=== PATIENT | male | born 1935 | race Two or more races ===

== ENCOUNTER 2019-12-31 05:25 | Day surgery (SDC) | payer OTHER ==
[~2019-12-31 05:25] MED LIST: ASA81 MG; ATACAND32 MG PO; CIPRO100 MG; LEVALBUTEROL; LEVAQUIN500 MG PO; NORVASC5 MG; TAMS0.4C; TAMS0.4C PO; TOPROL XL25 M1; TRELEGY ELLIPT1 EACH IH
== END 2019-12-31 15:35 | disposition home or self-care (01) ==
LOC: CIR.AMB 05:25
PROVIDERS: ATTEND Urology
DX: C67.8 Malignant neoplasm of overlapping sites of bladder (principal); Z20.828 Contact with and (suspected) exposure to other viral communicable diseases; N40.0 Benign prostatic hyperplasia without lower urinary tract symptoms

== ENCOUNTER 2020-01-12 03:22 | Emergency (ER) | payer OTHER ==
[~2020-01-12] VITALS: Ht 170.2 cm; Wt 81.6 kg
== END 2020-01-12 05:05 | disposition home or self-care (01) ==
LOC: ER 03:22
DX: T83.091A Other mechanical complication of indwelling urethral catheter, initial encounter (principal)

== ENCOUNTER 2020-02-28 05:55 | Day surgery (SDC) | payer OTHER | END 2020-02-28 11:40 | disposition home or self-care (01) | LOC: CIR.AMB 05:55 | PROVIDERS: ATTEND Urology | DX: C67.3 Malignant neoplasm of anterior wall of bladder (principal); Z20.828 Contact with and (suspected) exposure to other viral communicable diseases ==